=== PATIENT | female | born 1985 | race Caucasian/White ===

== ENCOUNTER 2023-11-01 11:56 | Inpatient (IN) | payer OTHER, SELFPAY ==
[2023-11-01] VITALS (53 sets, daily range): BP systolic 87–142; BP diastolic 49–98; PULSE 61–100; RESP 16–20; TEMP 36.7–37.3; O2SAT 94–99; BMI 58.5
[2023-11-01 04:43] LABS: Basophils % 0.2 %; Eosinophils # 0.2 10^3/uL (0.0-0.8); Eosinophils % 2.2 %; Hematocrit 41.3 % (36-47); Lymphocytes # 3.3 10^3/uL (0.8-4.8); Mean Corpuscular HGB Conc 31.2 g/dL (30-55); Mean Corpuscular Hemoglobin 28.2 pg (27-33); Mean Corpuscular Volume 90.4 fl (85-98); Mean Platelet Volume 10.6 fL (7.4-10.4); Monocytes # 0.8 10^3/uL (0.2-0.9); Neutrophils # 6.38 10^3/uL (1.8-7.7); Nucleated Red Blood Cells % 0 %; Platelet Count 270 10^3/cmm (157-399); Red Blood Count 4.57 10^6/uL (3.85-5.65); Red Cell Distribution Width 14.6 % (12.1-15.1); White Blood Count 10.79 10^3/uL (3.29-11.43)
[2023-11-01 05:13] LABS: Free T4 Free Thyroxine 0.87 ng/dL (0.82-1.77); Thyroid Stimulating Hormone 9.34 uIU/mL (0.27-4.20)
[2023-11-01] MEDS: oxytocin 30 UNIT/500 ML BAG 4 UNIT IV (07:22)
[2023-11-01] MEDS: dextrose 5%-lactated ringers 1,000 ML 125 ML IV (07:22)
--- NOTE | 2023-11-01 07:23 | PM.HP ---
Providers/Chief Complaint Chief Complaint: possible ROM at 0100 History of Present Illness Apryl Pretty is a 38 year old at 38.5 weeks gestation by 21-week ultrasound. Her is complicated by hypothyroidism -not able to tolerate medications, obesity, Rh-, late establish care in June 2023, advanced maternal age. The patient began to have increased contractions on 10/31/2023. She went to [place] for further evaluation and was advised that Dr. Zarate was on vacation and that they did not have someone to cover for them. She did not making change and she was advised that if her water breaks to go elsewhere or if she went there if she would have to be transferred. The patient went home and at approximately 1 AM on 11/01/2023 she noted gross rupture of fluids. The patient began to have increased contractions every 4 to 7 minutes. She presented to [facility] OB triage for further evaluation and was found to be nitrazine positive. The patient has a history of hypothyroidism and has not been able to tolerate her levothyroxine due to nausea. She was only able to tolerate it a few doses. She has a history of acid reflux and took Protonix outside of . She has had a lot of reflux without the Protonix. The patient had her RhoGAM shot done as she is O-. Her glucose tolerance test was 109. During her prior pregnancies she had 2 miscarriages and with her first , she had a small tear but no other complications. The patient denies any chest pains, shortness of breath, nausea, vomiting, diarrhea, constipation, dysuria, fever, vaginal bleeding. Medications/Allergies Home Medications Medication Instructions Recorded Confirmed Last Taken Type 1 tab PO DAILY 11/01/23 11/01/23 11/01/23 History Allergies Allergy/AdvReac Type Severity Reaction Status Date / Time pineapple Allergy ALGY-Swell Verified 11/01/23 07:14 Lip/Tongue/Throat shrimp Allergy ALGY-Anaphy Verified 11/01/23 07:14 laxis watermelon Allergy ALGY-Swell Verified 11/01/23 07:14 Lip/Tongue/Throat PFSH Acute PFSH: Medical History (Updated 11/01/23 @ 07:28 by Bola Lema MD) Hypothyroidism Surgical History (Updated 11/01/23 @ 07:28 by Bola Lema MD) No pertinent past surgical history Social History (Updated 11/01/23 @ 07:29 by Bola Lema MD) Smoking and tobacco/nicotine status: never used tobacco/nicotine Alcohol intake: never Substance/Drug Use: never Female Reproductive History: : 4 Vitals/I&O/Wt Last Vital Signs Pulse 85 11/01/23 07:14 BP 108/60 11/01/23 07:14 O2 Del Method Room Air 11/01/23 03:18 Weight last 48 hrs Weight 320 lb Physical Exam Narrative: General: Alert and oriented x3 Eyes: Pupils equal round and reactive to light and accommodation Mouth: Mucous membranes moist, pharynx non-erythematous Cardiac: Regular rate and rhythm without murmurs Lungs: Clear to auscultation bilaterally without wheezes, crackles or rhonchi Abdomen: Soft, non-tender, fundus consistent with gestational age Extremities: +1 edema in the bilateral lower extremities Data 11/01/23 04:35 A&P Assessment and plan (1) Supervision of high risk , unspecified, third trimester: The patient is christina every 5 minutes. She is 1 cm dilated. She has not made exchange consultant the last 2 hours. For this reason we will start IV Pitocin to get things moving since she is ruptured. Okay to use IV meds for pain per protocol and she may have a laboring epidural at 3 cm or beyond. heart tones currently are in a category 1 tracing. All questions were answered. The patient is in agreement with current plan of care. (2) Hypothyroidism: The patient was encouraged to find ways to take her thyroid medication and advised that in future pregnancies it would be very important to take her medication to help decrease risk for neurologic complications for Attestations Medical Necessity Statement*: The patient will be here for greater than 2 midnights due to routine intrapartum and management of labor and delivery. Coding Level of Care Code Acute Code for Chg Fwd Diagnoses Supervision of high risk , unspecified, third trimester O09.93 Hypothyroidism E03.9
[2023-11-01] MEDS: fentaNYL 50 mcg/mL INJ 2mL IVP (08:50)
--- NOTE | 2023-11-01 10:15 | P.ANESASSM_ITS ---
Pre-Anesthetic Assessment Height/Weight: Height 1.57 m Weight 145.15 kg Temp Pulse Resp BP Pulse Ox O2 Del Method 99.1 F 85 18 137/83 99 Room Air 11/01/23 08:44 11/01/23 10:30 11/01/23 08:50 11/01/23 10:05 11/01/23 10:30 11/01/23 03:18 Preop Diagnosis: IUP labor epidural Familial anesthetic complications: none Was Beta Ariella taken within 24 hours: N/A Was Clonidine taken within 24 hours: N/A Social No alcohol and No tobacco Exam alert and oriented x 3 Airway Submandibular: within normal limits Cervical ROM: within normal limits Mallampati: Class IV Dentition: full History/ROS No significant history except as noted Pulmonary None reported CV/HEM None reported None reported Hepatic None reported GI None reported Metabolic None reported Musc/skel None reported Neuropsych None reported Anesthetic Plan ASA status: 3 Anesthesia: Anesthesia Evaluation and Regional (specify below) Medications/Allergies Home Medications Medication Instructions Recorded Confirmed Last Taken Type 1 tab PO DAILY 11/01/23 11/01/23 11/01/23 History Allergies Allergy/AdvReac Type Severity Reaction Status Date / Time pineapple Allergy ALGY-Swell Verified 11/01/23 07:14 Lip/Tongue/Throat shrimp Allergy ALGY-Anaphy Verified 11/01/23 07:14 laxis watermelon Allergy ALGY-Swell Verified 11/01/23 07:14 Lip/Tongue/Throat Current Medications Generic Name Dose Route Start Last Admin Trade Name Freq PRN Reason Stop Dose Admin Fentanyl 25 - 100 mcg 11/01/23 03:15 11/01/23 08:50 Fentanyl 50 Mcg/Ml Inj 2ml IVP 50 mcg Q1H PRN Administration SEVERE PAIN Dextrose/Lactated Ringer's 1,000 mls @ 125 mls/hr 11/01/23 03:15 11/01/23 07:22 Dextrose 5%-Lactated Ringers IV 125 mls/hr .Q8H MARÍA Administration Oxytocin 30 unit in 500 mls @ 4 mls/hr 11/01/23 05:45 11/01/23 07:22 Pitocin IV 4 milliunit/min .Q24H MARÍA 4 mls/hr Administration Protocol 4 MILLIUNIT/MIN Lactated Ringer's 1,000 mls @ 999 mls/hr 11/01/23 09:14 11/01/23 10:28 Lactated Ringers IV 999 mls/hr .Q1H1M PRN Administration See label comments Ropivacaine 100 mg in 50 mls @ 10 mls/hr 11/01/23 09:15 11/01/23 10:27 Naropin Syringe EPIDURAL 13 mls/hr .Q5H MARÍA Administration PFSH Anesthesia Medical History (Updated 11/01/23 @ 07:28 by Bola Lema MD) Hypothyroidism Surgical History (Updated 11/01/23 @ 07:28 by Bola Lema MD) No pertinent past surgical history Social History (Updated 11/01/23 @ 07:29 by Bola Lema MD) Smoking and tobacco/nicotine status: never used tobacco/nicotine Alcohol intake: never Substance/Drug Use: never Female Reproductive History : 4 Data Anesthesia 11/01/23 04:35 Short CBC 11/01/23 Range/Units 04:35 WBC 10.79 (3.29-11.43) 10^3/uL Hgb 12.90 (11.27-16.99) g/dL Hct 41.3 (36-47) % MCV 90.4 (85-98) fl Plt Count 270 (157-399) 10^3/cmm Neut % (Auto) 59.0 % Neut # (Auto) 6.38 (1.8-7.7) 10^3/uL Blood Bank 11/01/23 04:35 Blood Type O Negative Rho(D) Type Rh negative Antibody Screen Negative Cardiac Studies: 2 No Data to Display
[2023-11-01] MEDS: ROPivacaine syringe 100 MG/50 ML SYRINGE 13 MG EPIDURAL (10:27)
[2023-11-01] MEDS: lactated ringers 1,000 ML 999 ML IV (10:28)
--- NOTE | 2023-11-01 10:36 | ANES.PROC ---
Anesthesia Procedures Procedure/Date: 11/01/23 labor epidural Epidural: Time Out Performed: Yes Consents Signed: Procedure Consent Consent: from patient, risks and benefits reviewed and patient agrees to proceed Lumbar Level: L3-L4 Epidural position: sitting Epidural procedure: sterile prep of area, 1% lidocaine to numb the area, 18 g needle, negative for paresthesia passed, test dose given, 1.5% xylocaine 1:200k epi, placed PCEA, no systemic response, sterile dressing applied, L.U.D. no apparent complications and 0.2% Ropiavacaine @ mls/hr (13) Additional Comments: VANDANA at 7, negative blood/CSF aspiration. taped at 14 at skin.
[2023-11-01] MEDS: ampicillin 2,000 MG in sodium chloride 0.9% (plus) 50 ML 100 MG IV (11:14)
--- NOTE | 2023-11-01 13:21 | PM.DELIVERY ---
Delivery Note: Date of delivery: November 01, 2023 Pre-Delivery Course: Apryl Pretty is a 38 year old at 38.5 weeks gestation by 21-week ultrasound. Her is complicated by hypothyroidism -not able to tolerate medications, obesity, Rh-, late establish care in June 2023, advanced maternal age. The patient began to have increased contractions on 10/31/2023. She went to [place] for further evaluation and was advised that Dr. Zarate was on vacation and that they did not have someone to cover for them. She did not making change and she was advised that if her water breaks to go elsewhere or if she went there if she would have to be transferred. The patient went home and at approximately 1 AM on 11/01/2023 she noted gross rupture of fluids. The patient began to have increased contractions every 4 to 7 minutes. She presented to [facility] triage for further evaluation and was found to be nitrazine positive. The patient was told that her GBS was negative. We had not received records of this. She was given 1 dose of ampicillin, however the second dose was not able to be given. The patient has a history of hypothyroidism and has not been able to tolerate her levothyroxine due to nausea. She was only able to tolerate it a few doses. She has a history of acid reflux and took Protonix outside of . She has had a lot of reflux without the Protonix. The patient had her RhoGAM shot done as she is O-. Her glucose tolerance test was 109. During her prior pregnancies she had 2 miscarriages and with her first , she had a small tear but no other complications. The patient was started on IV Pitocin due to being ruptured and not making change after 2 hours. She tolerated this well and received a laboring epidural for pain control. The infant did well throughout the labor process. They were not able to keep the on the monitor well due to maternal body habitus, so an internal lead was placed. The patient continued to make change and was complete by 11:25 AM on 11/01/2023. Delivery: The patient began pushing at 11:37 AM on 11/01/2023. She pushed well and the delivered in the OA position at 12:26 PM on 11/01/2023. 2 nuchal cords were noted but were tight and not able to be reduced easily because of the internal lead, so the infant was delivered through these. The right shoulder was the anterior shoulder and it did not deliver initially. The left shoulder was manipulated and it did not deliver either. Pressure was then placed on the right shoulder posteriorly and the arm was swept forward. The right shoulder was then able to be delivered. The left shoulder then delivered without complication. The rest of the infant delivered without complication. This process took approximately 45 seconds. The infant's mouth and nose were bulb suction by myself and the was breathing immediately after delivery. The infant was placed on the mother's chest where the nurses were waiting to care for her. The cord was clamped by myself after approximately 1 minute and cut by the infant's father. Cord blood was obtained. The cord was then drained of blood and traction was placed on umbilical cord. The uterus was massaged and stented delivered without complication at 12:29 PM. The placenta was noted to be intact with a central umbilical cord insertion site. The patient's bleeding was noted to be slow. The cervix was inspected and no lacerations were noted. The vaginal wall was inspected and a first-degree laceration was noted in the perineal region. This was bleeding, so 3-0 Vicryl was used to repair it in a running fashion. No lidocaine was necessary as the epidural was providing adequate anesthesia. The patient tolerated this well. Currently both the mother and infant are doing well. History History History 4 Term 2 Miscarriages/Ectopic 2 Living Children 2 Past Pregnancies Del. Date GA/Weeks Outcome Route Wt Inf Gender Labor Lgth Comp. Anesthesia Location 11/01/23 38 live - full term Vaginal 7 lb 14 oz Female 12 regional O[facility] - [place] Delivery Date: 11/01/23 Last Updated by: Bola Lema MD Difficult delivery - about 45 seconds to deliver body after head delivered. Hypothyroidism not on meds through . 1st degree perineal laceration. Patient of Dr Zarate in [place]. A&P Assessment and plan (1) Spontaneous vaginal delivery: The patient is doing well overall at this time. We will continue with routine care. All questions were answered. The patient and her are in agreement with current plan of care. Coding Level of Care Code Acute Code for Chg Fwd Diagnoses Spontaneous vaginal delivery O80
[2023-11-01] MEDS: ibuprofen 800 mg tablet PO ×2 (14:53→20:34)
--- NOTE | 2023-11-01 15:57 | PC.NURSE ---
1540 PATIENT UP TO BATHROOM AND WAS INSTRUCTED ON PERICARE AND PATIENT THEN AMBULATED TO OB 11, ORIENTED TO ROOM, CALL LIGHT SYSTEM,ETC. WENT OVER PP PACK.
[2023-11-01] MEDS: lanolin oint 7 gm 1 APPLIC TOPICAL (18:42)
[2023-11-01] MEDS: docusate sodium 100 mg Capsule PO (18:43)
[2023-11-02 00:55] LABS: Hematocrit 33.4 % (36-47); Mean Corpuscular HGB Conc 32.6 g/dL (30-55); Mean Corpuscular Hemoglobin 29.1 pg (27-33); Mean Corpuscular Volume 89.3 fl (85-98); Mean Platelet Volume 10.6 fL (7.4-10.4); Platelet Count 216 10^3/cmm (157-399); Red Blood Count 3.74 10^6/uL (3.85-5.65); Red Cell Distribution Width 14.6 % (12.1-15.1); White Blood Count 13.13 10^3/uL (3.29-11.43)
[2023-11-02 02:42] VITALS: BP 99/60; PULSE 80; RESP 16; TEMP 36.7; O2SAT 96
[2023-11-02 07:00] VITALS: BP 120/71; PULSE 78; RESP 16; TEMP 36.6; O2SAT 97
--- NOTE | 2023-11-02 08:00 | ANE.PACU2 ---
Inpatient post-anesthesia follow up: Airway intact: Yes Vital signs: Temperature 98.2 F Pulse Rate 82 Respiratory Rate 18 Blood Pressure 138/84 Pulse Oximetry 97 Oxygen Delivery Me thod Room Air Oxygen Flow Rate Fraction of Inspir ed Oxygen Hydration adequate: Yes Nausea and vomiting: No Pain level: 1 Mental status: Baseline Epidural Start/End: Epidural Start Date: 11/01/23 Epidural Start Time: 10:15 Epidural End Date: 11/01/23 Epidural End Time: 14:21
--- NOTE | 2023-11-02 08:24 | P.PN_ITS ---
Subjective 2 Subjective: The patient has been doing well. She is ambulating, voiding, passing gas and tolerating food by mouth. Her pain is currently well-controlled with Motrin alone. Her bleeding has been decreasing okay. She is willing to try the levothyroxine again to see if she can tolerate it. Vitals/I&O/Wt Last Vital Signs Temp 97.9 F 11/02/23 07:00 Pulse 78 11/02/23 07:00 Resp 16 11/02/23 07:00 BP 120/71 11/02/23 07:00 Pulse Ox 97 11/02/23 07:00 O2 Del Method Room Air 11/02/23 07:00 Weight last 48 hrs Weight 320 lb Physical Exam 2 Narrative: General: Alert and oriented x3 Cardiac: Regular rate and rhythm without murmurs Lungs: Clear to auscultation bilaterally without wheezes, crackles or rhonchi Abdomen: Soft, mild tenderness over uterus. The uterus is firm and 1 cm below the umbilicus. Extremities: +1 pitting edema in the bilateral lower extremities Urinary Catheter Management: Mendez: Cath Placed During This Visit: yes, but has since been removed by the nurse Reason for Continuing Indwelling Catheter: Other Urinary Catheter Date of Insertion: 11/01/23 Urinary Catheter Time of Insertion: 10:39 Date Urinary Catheter Removed: 11/01/23 Time Urinary Catheter Discontinued: 11:35 Data 11/02/23 00:32 A&P Assessment and plan (1) Spontaneous vaginal delivery: The patient is doing well at this time. Will plan to continue with routine care. Likely discharge home tomorrow as long as she continues to improve. (2) Hypothyroidism: The patient has hypothyroidism and has been off of her medications due to nausea. We will try starting back and then lower dose of 50 mcg daily to see how she does with this. If she does not do well with this, consideration for [place] Thyroid could be made as well. Okay to give Zofran with thyroid medication if needed. Attestations 2 Medical Necessity Statement*: The patient continues to need inpatient care as she recovers after a spontaneous vaginal delivery. Her stay will cross 2 midnights. Coding Level of Care Code Acute Code for Chg Fwd Diagnoses Spontaneous vaginal delivery O80 Hypothyroidism E03.9
[2023-11-02 08:30] VITALS: BP 122/75; PULSE 81; RESP 20; TEMP 36.4
[2023-11-02 09:00] VITALS: PULSE 78; RESP 17
[2023-11-02] MEDS: PRENATAL VIT NO.130/IRON/FOLIC 1 EACH TABLET PO (09:15)
[2023-11-02] MEDS: docusate sodium 100 mg Capsule PO ×2 (09:15→22:38)
[2023-11-02] MEDS: levothyroxine 50 mcg Tablet PO (09:15)
[2023-11-02] MEDS: ibuprofen 800 mg tablet PO ×2 (09:15→22:37)
--- NOTE | 2023-11-03 07:49 | PM.DCS ---
Discharge Providers Date of Admission: 11/01/23 11:56 Date of Discharge: November 03, 2023 Attending Provider at Admission: Bola Lema MD Attending Provider at Discharge: Bola Lema MD Diagnoses at Discharge Discharge Diagnosis (1) Spontaneous vaginal delivery: Status: Resolved (2) Hypothyroidism: Status: Acute Reason for Visit Reason for Visit: possible ROM at 0100 Brief History: Apryl Pretty is a 38 year old at 38.5 weeks gestation by 21-week ultrasound. Her is complicated by hypothyroidism -not able to tolerate medications, obesity, Rh-, late establish care in June 2023, advanced maternal age. The patient began to have increased contractions on 10/31/2023. She went to [place] for further evaluation and was advised that Dr. Zarate was on vacation and that they did not have someone to cover for them. She did not make any change and she was discharged and advised that if her water breaks to go elsewhere or if she went there if she would have to be transferred. The patient went home and at approximately 1 AM on 11/01/2023 she noted gross rupture of fluids. The patient began to have increased contractions every 4 to 7 minutes. She presented to [facility] OB triage for further evaluation and was found to be nitrazine positive. I am caring for her as the OB on-call. The patient has a history of hypothyroidism and has not been able to tolerate her levothyroxine due to nausea. She was only able to tolerate it a few doses. She has a history of acid reflux and took Protonix outside of . She has had a lot of reflux without the Protonix. The patient had her RhoGAM shot done as she is O-. Her glucose tolerance test was 109. During her prior pregnancies she had 2 miscarriages and with her first , she had a small tear but no other complications. Hospital Course Hospital Course The patient was started on IV Pitocin due to having spontaneous rupture membranes and not making any change for 2 hours. She did well with this and began to make progress. She was complete by 11:25 AM on 11/01/2023. Patient received 1 dose of ampicillin IV for undocumented GBS status. The patient thinks that her GBS was negative. The patient began pushing at 11:37 AM on 11/01/2023. She pushed well and the infant delivered in the OA position at 12:26 PM on 11/01/2023. 2 nuchal cords were noted but were tight and not able to be reduced easily because of the internal lead, so the was delivered through these. The right shoulder was the anterior shoulder and it did not deliver initially. The left shoulder was manipulated and it did not deliver either. Pressure was then placed on the right shoulder posteriorly and the arm was swept forward. The right shoulder was then able to be delivered. The left shoulder then delivered without complication. The rest of the delivered without complication. This process took approximately 45 seconds. The 's mouth and nose were bulb suction by myself and the was breathing immediately after delivery. The infant was placed on the mother's chest where the nurses were waiting to care for her. The cord was clamped by myself after approximately 1 minute and cut by the 's father. Cord blood was obtained. The cord was then drained of blood and traction was placed on umbilical cord. The uterus was massaged and the placenta delivered without complication at 12:29 PM. The placenta was noted to be intact with a central umbilical cord insertion site. The patient's bleeding was noted to be slow. The cervix was inspected and no lacerations were noted. The vaginal wall was inspected and a first-degree laceration was noted in the perineal region. This was bleeding, so 3-0 Vicryl was used to repair it in a running fashion. No lidocaine was necessary as the epidural was providing adequate anesthesia. The patient tolerated this well. , the patient has done very well. She is ambulating, voiding, passing gas and tolerating food by mouth. Her bleeding has been relatively light. Her pain has been controlled by Motrin alone. She is doing well at the time of discharge and will follow-up with her pebble mill operator at 6 weeks or sooner if needed. Routine discharge instructions were discussed. All questions were answered. The patient and her are in agreement with current plan of care. Physical Exam Narrative: General: Alert and oriented x3 Cardiac: Regular rate and rhythm without murmurs Lungs: Clear to auscultation bilaterally without wheezes, crackles or rhonchi Abdomen: Soft, mild tenderness over uterus. The uterus is firm and 1 cm below the umbilicus. Extremities: +1 pitting edema in the bilateral lower extremities Urinary Catheter Management: Mendez: Cath Placed During This Visit: yes, but has since been removed by the nurse Reason for Continuing Indwelling Catheter: Other Urinary Catheter Date of Insertion: 11/01/23 Urinary Catheter Time of Insertion: 10:39 Date Urinary Catheter Removed: 11/01/23 Time Urinary Catheter Discontinued: 11:35 Discharge Data Studies Completed and Pending Laboratory Results WBC 13.13 10^3/uL (3.29-11.43) H 11/02/23 00:32 RBC 3.74 10^6/uL (3.85-5.65) L 11/02/23 00:32 Hgb 10.90 g/dL (11.27-16.99) L 11/02/23 00:32 Hct 33.4 % (36-47) L 11/02/23 00:32 MCV 89.3 fl (85-98) 11/02/23 00:32 MCH 29.1 pg (27-33) 11/02/23 00:32 MCHC 32.6 g/dL (30-55) 11/02/23 00:32 RDW 14.6 % (12.1-15.1) 11/02/23 00:32 Plt Count 216 10^3/cmm (157-399) 11/02/23 00:32 MPV 10.6 fL (7.4-10.4) H 11/02/23 00:32 Neut % (Auto) 59.0 % 11/01/23 04:35 Lymph % (Auto) 31.0 % 11/01/23 04:35 [place] % (Auto) 7.0 % 11/01/23 04:35 Eos % (Auto) 2.2 % 11/01/23 04:35 Baso % (Auto) 0.2 % 11/01/23 04:35 Neut # (Auto) 6.38 10^3/uL (1.8-7.7) 11/01/23 04:35 Lymph # (Auto) 3.3 10^3/uL (0.8-4.8) 11/01/23 04:35 [place] # (Auto) 0.8 10^3/uL (0.2-0.9) 11/01/23 04:35 Eos # (Auto) 0.2 10^3/uL (0.0-0.8) 11/01/23 04:35 Baso # (Auto) 0.0 10^3/uL (0.0-0.1) 11/01/23 04:35 Nucleated RBC % (auto) 0 % 11/01/23 04:35 Nucleated RBCs # 0.0 /100WBC 11/01/23 04:35 TSH 9.34 uIU/mL (0.27-4.20) H 11/01/23 04:35 Free T4 0.87 ng/dL (0.82-1.77) 11/01/23 04:35 Blood Type O Negative 11/01/23 04:35 Rho(D) Type Rh negative 11/01/23 04:35 Antibody Screen Negative 11/01/23 04:35 Screen Negative (Negative) 11/02/23 00:32 Vitals Last Vital Signs Temp 97.5 F L 11/02/23 08:30 Pulse 78 11/02/23 09:00 Resp 17 11/02/23 09:00 BP 122/75 11/02/23 08:30 Pulse Ox 97 11/02/23 07:00 O2 Del Method Room Air 11/02/23 07:00 Discharge Plan Discharge Patient Disposition: Home Condition: Good Prescriptions: New ibuprofen 800 mg Tablet 800 mg PO TID Qty: 60 0RF levothyroxine 50 mcg Tablet 50 mcg PO QAM Qty: 30 1RF Continued 1 tab PO DAILY Discharge Orders: Discharge Order (Routine); Ordered 11/03/23 Ordered By: Bola Lema Discharge Diet: Regular Discharge Activity: Increase activity as tolerated Patient Instructions: Depression (DC), Expression, Collection and Storage of Breast Milk (DC), and Nipple Soreness (ED), and Breast Engorgement (ED), and Plugged Ducts (ED), How to Increase Your Milk Supply (DC), How to Tell if Your Baby is Getting Enough Breast Milk (DC), Opioid Safety (DC), Preeclampsia and Eclampsia After Delivery (GEN), Hemorrhage (DC), OB Discharge Report, OB Food/Drug Interaction Guide, Opioid Safety, OB [facility], OB Vaginal Deliveries, Abnormal Bleeding Activity Restrictions/Additional Instructions: Nothing per vagina for 6 weeks. Follow up with your IC DESIGNER CUSTOM at 6 weeks or sooner if needed. Discharge Attestations Time Spent in Discharge Care*: greater than 30 min Quality Metrics Clinical Quality Measures [ No reported AMI, CVA or VTE this stay] Coding Level of Care Code Acute Code for Chg Fwd Diagnoses Spontaneous vaginal delivery O80 Hypothyroidism E03.9
[2023-11-03] MEDS: PRENATAL VIT NO.130/IRON/FOLIC 1 EACH TABLET PO (09:19)
[2023-11-03] MEDS: docusate sodium 100 mg Capsule PO (09:20)
[2023-11-03] MEDS: levothyroxine 50 mcg Tablet PO (09:20)
[2023-11-03] MEDS: ibuprofen 800 mg tablet PO (09:20)
[2023-11-03 09:43] VITALS: BP 142/90; PULSE 82; RESP 16; TEMP 36.9
[2023-11-03 13:15] VITALS: BP 138/84; PULSE 82; RESP 18; TEMP 36.8
== END 2023-11-03 13:15 | disposition home or self-care (01) | DRG 807 ==
LOC: OPOB 11:56 → OBGYN 11:56
PROVIDERS: Admitting Provider Family Medicine; Visit Provider Family Medicine
DX: O99.284 Endocrine, nutritional and metabolic diseases complicating childbirth (principal); Z37.0 Single live birth; E03.9 Hypothyroidism, unspecified; O99.214 Obesity complicating childbirth; O69.81X0 Labor and delivery complicated by cord around neck, without compression, not applicable or unspecified; Z3A.38 38 weeks gestation of pregnancy; O26.893 Other specified pregnancy related conditions, third trimester; Z67.41 Type O blood, Rh negative; K21.9 Gastro-esophageal reflux disease without esophagitis
CPT/HCPCS: 36415; 51702; 59025; 59409; 83986; 84439; 84443; 85025; 85027; 85460; 86850; 86900; 90384; 98960; 99211; J0290; J2590; J2795; J3010; J7120; J7121

== ENCOUNTER 2025-04-07 07:00 | Inpatient (IN) | payer OTHER, SELFPAY ==
[2025-04-07] VITALS (15 sets, daily range): BP systolic 118–139; BP diastolic 56–83; PULSE 57–99; RESP 14–16; TEMP 36.6–37.1; O2SAT 97; BMI 59.2
[2025-04-07 08:55] LABS: Hematocrit 37.6 % (36-47); Hemoglobin 11.90 g/dL (11.27-16.99); Mean Corpuscular HGB Conc 31.6 g/dL (30-55); Mean Corpuscular Hemoglobin 26.7 pg (27-33); Mean Corpuscular Volume 84.3 fl (85-98); Nucleated Red Blood Cells % 0 %; Platelet Count 299 10^3/cmm (157-399); Red Blood Count 4.46 10^6/uL (3.85-5.65); White Blood Count 13.36 10^3/uL (3.29-11.43)
--- NOTE | 2025-04-07 09:04 | P.HPUD_ITS ---
Labor & Delivery H&P Update Date of Procedure: April 07, 2025 Date H&P Performed: 04/03/25 Changes to previous documentation: The patient is having consistent contractions with cervical change. Admission Diagnosis: 40-year-old 5 para 2-0-2-2 at 38 weeks estimated gestational age Planned procedure: Spontaneous vaginal delivery Other information: The patient is a 40-year-old 38-week multigravida female arrived to the hospital complaining of contractions over the past day. She states they are getting pr ogressively worse. She also question if she was having some drainage from her vagina as well. She is evaluated on the OB department. She is found to be active and PROM negative. But her contractions continued more severe. Her cervix made significant change and was 7 cm and 9% effaced prior to be admitted to the OB floor. The patient's labs were relatively unremarkable. Her blood type is O-. Her antibody screen is negative. Her drug screen was positive for marijuana. She passed her glucose screen. She received a RhoGAM injection on 02/01. She is GBS negative. The remainder of her infectious disease profile is within normal limits. Related Problem List Diagnoses 1. 38 weeks gestation of : 2. Hypothyroidism: 3. Obesity complicating , childbirth, or puerperium, antepartum: A&P Assessment and plan 1. 38 weeks gestation of : I anticipate routine labor and delivery. The patient desires an epidural and we are waiting for her to have that done prior to rupturing membranes and hopefully delivering her infant. Status: Acute 2. Hypothyroidism: Status: Acute 3. Obesity complicating , childbirth, or puerperium, antepartum: Status: Acute PDMP PDMP Reviewed: Not Reviewed
--- NOTE | 2025-04-07 09:56 | PM.DELIVERY ---
Delivery Note: Date of delivery: April 07, 2025 Pre-delivery diagnoses: 40-year-old multigravida female at 38 weeks estimated gestational age in active labor Post-delivery diagnoses: Status post spontaneous vaginal delivery Procedure: Spontaneous vaginal delivery Delivering Physician: Larry Dooley Estimated blood loss (mL): 75 Pre-Delivery Course: The patient presented to the hospital complaining of contractions. After about 2 hours of being in the hospital she was noted to make cervical change. She is brought back to the labor room. She quickly progressed to 9 cm. An amniotomy was performed. She then progressed to complete Delivery: DELIVERY: The patient progressed to complete without difficulty. She delivered a female with a weight of 8 pounds 2 ounces with Apgars of 7, 9. The baby was delivered from the CHAPIS position and placed on the mother's abdomen. The cord was then clamped and cut 1 minute after delivery. There was no nuchal cord. There was no meconium. The placenta and 3 vessel cord were delivered intact shortly thereafter. The perineum and vaginal vault were carefully examined. No lacerations were noted. Both the mother and the baby were in stable condition. Post-Delivery Status: Good History History History 5 Term 3 Miscarriages/Ectopic 2 Living Children 3 Past Pregnancies Del. Date GA/Weeks Outcome Route Wt Inf Gender Labor Lgth Comp. Anesthesia Location 11/01/23 38 live - full term Vaginal 7 lb 14 oz Female 12 [facility], [place] Delivery Date: 11/01/23 Last Updated by: Bola Lema MD Difficult delivery - about 45 seconds to deliver body after head delivered. Hypothyroidism not on meds through . 1st degree perineal laceration. Patient of Dr Zarate in [place]. A&P Assessment and plan 1. 38 weeks gestation of : I anticipate routine care. 2. Obesity complicating , childbirth, or puerperium, antepartum: 3. Spontaneous vaginal delivery: PDMP PDMP Reviewed: Not Reviewed Coding Level of Care Code Acute Code for Chg Fwd Diagnoses 38 weeks gestation of Z3A.38 Obesity complicating , childbirth, or puerperium, antepartum O99.210 Spontaneous vaginal delivery O80
[2025-04-07] MEDS: oxytocin 30 UNIT/500 ML BAG 600 UNIT IV (11:21)
[2025-04-07 22:12] LABS: Hematocrit 34.0 % (36-47); Hemoglobin 10.70 g/dL (11.27-16.99); Mean Corpuscular HGB Conc 31.5 g/dL (30-55); Mean Corpuscular Hemoglobin 26.8 pg (27-33); Mean Corpuscular Volume 85.2 fl (85-98); Platelet Count 253 10^3/cmm (157-399); Red Blood Count 3.99 10^6/uL (3.85-5.65); White Blood Count 14.10 10^3/uL (3.29-11.43)
[2025-04-08] MEDS: HYDROcodone-acetaminophen 5-325 mg Tablet PO (02:04)
[2025-04-08] MEDS: PRENATAL VIT NO.130/IRON/FOLIC 1 EACH TABLET PO (05:09)
[2025-04-08 05:10] VITALS: BP 119/77; PULSE 86; RESP 16; TEMP 36.7; O2SAT 94
[2025-04-08 07:34] VITALS: BP 134/82; PULSE 81; RESP 16; TEMP 36.4
--- NOTE | 2025-04-08 08:54 | PM.OBGYDC ---
Discharge Providers [employer]INE [employer] Date of Admission: 04/07/25 07:00 Date of Discharge: 04/25/25 Attending Provider at Admission: Larry Dooley MD Attending Provider at Discharge: Larry Dooley MD Diagnoses at Discharge Discharge Diagnosis 1. 38 weeks gestation of : 2. Obesity complicating , childbirth, or puerperium, antepartum: 3. Spontaneous vaginal delivery: Reason for Visit Reason for Visit: bloody show, ctx, poss ROM Hospital Course Hospital Course Patient presented to the hospital in active labor. She quickly progressed complete and had an unremarkable delivery of a healthy appearing infant. Her course was unremarkable. Her bleeding was within normal limits. Her pain was well-controlled Information Peripartum Data: Delivery Method: Vaginal Physical Exam Narrative: The patient is alert. She appears comfortable. Her heart has a regular rate and rhythm with no murmurs appreciated. Lungs are clear to auscultation bilaterally. Her fundus is firm and below the umbilicus. History History History 5 Term 3 Miscarriages/Ectopic 2 Living Children 3 Past Pregnancies Del. Date GA/Weeks Outcome Route Wt Inf Gender Labor Lgth Comp. Anesthesia Location 11/01/23 38 live - full term Vaginal 7 lb 14 oz Female 12 [facility] [place] Delivery Date: 11/01/23 Last Updated by: Bola Lema MD Difficult delivery - about 45 seconds to deliver body after head delivered. Hypothyroidism not on meds through . 1st degree perineal laceration. Patient of Dr Zarate in [place]. Discharge Data Studies Completed and Pending Laboratory Results WBC 14.10 10^3/uL (3.29-11.43) H 04/07/25 22:04 RBC 3.99 10^6/uL (3.85-5.65) 04/07/25 22:04 Hgb 10.70 g/dL (11.27-16.99) L 04/07/25 22:04 Hct 34.0 % (36-47) L 04/07/25 22:04 MCV 85.2 fl (85-98) 04/07/25 22:04 MCH 26.8 pg (27-33) L 04/07/25 22:04 MCHC 31.5 g/dL (30-55) 04/07/25 22:04 RDW 14.4 % (12.1-15.1) 04/07/25 22:04 Plt Count 253 10^3/cmm (157-399) 04/07/25 22:04 MPV 10.6 fL (7.4-10.4) H 04/07/25 22:04 Neut % (Auto) 69.1 % 04/07/25 08:00 Lymph % (Auto) 23.4 % 04/07/25 08:00 [place] % (Auto) 5.9 % 04/07/25 08:00 Eos % (Auto) 1.0 % 04/07/25 08:00 Baso % (Auto) 0.1 % 04/07/25 08:00 Neut # (Auto) 9.22 10^3/uL (1.8-7.7) H 04/07/25 08:00 Lymph # (Auto) 3.1 10^3/uL (0.8-4.8) 04/07/25 08:00 [place] # (Auto) 0.8 10^3/uL (0.2-0.9) 04/07/25 08:00 Eos # (Auto) 0.1 10^3/uL (0.0-0.8) 04/07/25 08:00 Baso # (Auto) 0.0 10^3/uL (0.0-0.1) 04/07/25 08:00 Nucleated RBC % (auto) 0 % 04/07/25 08:00 Nucleated RBCs # 0.0 /100WBC 04/07/25 08:00 Insulin-like GF I Negative 04/07/25 06:33 Blood Type O Negative 04/07/25 08:00 Rho(D) Type Rh negative 04/07/25 08:00 Antibody Screen Negative 04/07/25 08:00 Screen Negative (Negative) 04/07/25 22:04 Vitals Last Vital Signs Temp 97.6 F 04/08/25 07:34 Pulse 81 04/08/25 07:34 Resp 16 04/08/25 07:34 BP 134/82 04/08/25 07:34 Pulse Ox 94 04/08/25 05:10 O2 Del Method Room Air 04/08/25 05:10 Results Labs OB ([facility]): Blood Type O Negative 04/07/25 Antibody Screen Negative 04/07/25 Hct, (36-47) 34.0 % L 04/07/25 Hgb, (11.27-16.99) 10.70 g/dL L 04/07/25 Rho(D) Type Rh negative 04/07/25 Plt Count, (157-399) 253 10^3/cmm 04/07/25 TSH, (0.27-4.20) 9.34 uIU/mL H 11/01/23 Free T4, (0.82-1.77) 0.87 ng/dL 11/01/23 Discharge Plan Discharge Patient Disposition: Home Condition: Stable Prescriptions: New ibuprofen 800 mg Tablet 800 mg PO TID Qty: 45 0RF Continued albuterol sulfate 90 mcg/actuation HFA aerosol inhaler 2 puff inhalation QID 30 Days Qty: 8.5 5RF 1 tab PO DAILY levothyroxine 50 mcg Tablet 50 mcg PO QAM Qty: 30 1RF Discharge Order = DC NOW: Discharge Order (Routine); Ordered 04/08/25 Ordered By: Larry Dooley Referrals: Larry Dooley MD [Physician, Family Practice] - 6 Weeks Referral Note: * Please call [facility] first thing Thursday morning to schedule your 6 week appointment Discharge Diet: Usual diet Discharge Activity: Limit activity as instructed Patient Instructions: Depression (DC), Bleeding (DC), Preeclampsia and Eclampsia After Delivery (GEN), Hemorrhage (DC), OB Discharge Report, OB Food/Drug Interaction Guide, Opioid Safety, OB Home Care, OB Proud Parent Packet, OB Vaginal Deliveries, Patient Portal & Fiona Instructions Discharge Attestations [employer]INE [employer] Time Spent in Discharge Care*: less than 30 min Coding Level of Care Code Acute Code for Chg Fwd Diagnoses 38 weeks gestation of Z3A.38 Obesity complicating , childbirth, or puerperium, antepartum O99.210 Spontaneous vaginal delivery O80
[2025-04-08 11:15] VITALS: BP 134/82; PULSE 81; RESP 16; TEMP 36.4; O2SAT 96
== END 2025-04-08 13:15 | disposition home or self-care (01) | DRG 807 ==
LOC: OPOB 09:50 → OBGYN 09:50
PROVIDERS: Admitting Provider Family Medicine; Visit Provider Family Medicine
DX: O99.284 Endocrine, nutritional and metabolic diseases complicating childbirth (principal); Z37.0 Single live birth; Z3A.38 38 weeks gestation of pregnancy; E03.9 Hypothyroidism, unspecified; O99.214 Obesity complicating childbirth
CPT/HCPCS: 36415; 59025; 59409; 83986; 84112; 85025; 85027; 85460; 86850; 86900; 90384; 99211; J2590; J7030; J9999